=== PATIENT | female | born 1975 | race Caucasian/White ===

== ENCOUNTER 2022-08-27 11:34 | Emergency (ER) | payer MEDICAID ==
[~2022-08-27] VITALS: Ht 160 cm; Wt 57.0 kg
[2022-08-27] MEDS ORDERED: ASPIRIN 81MG TABLET PO ONE (16:00)
[2022-08-27] MEDS: NITROGLYCERIN 0.4MG TABLET SL SL PRN ×2 (16:18→16:28)
[2022-08-27 17:07] LABS: CHLORIDE 105 mEq/L (98-107)
[2022-08-27 17:28] LABS: HCG SCREEN NEGATIVE
[2022-08-27 17:30] LABS: BASOPHILS % 0.4 % (0.0-2.0); EOSINOPHILS % 0.4 % (0.0-5.0); HEMATOCRIT. 43.3 % (36.0-48.0); HEMOGLOBIN. 15.1 g/dL (12.0-16.0); LYMPHOCYTES % 21.3 % (20.0-50.0); MEAN CORPUSCULAR HEMOGLOBIN 32.3 pg (28.0-32.0); MEAN CORPUSCULAR VOLUME 92.4 fL (81.0-99.0); MONOCYTES % 4.6 % (2.0-8.0); NEUTROPHILS % 73.3 % (40.0-76.0); PLATELET 250 x1000/uL (130-400); RED BLOOD CELL COUNT 4.69 mill/uL (4.2-5.4); RED CELL DISTRIBUTION WIDTH 13.8 % (11.6-14.6)
[2022-08-27] MEDS ORDERED: LISI20TA31 MT (17:51)
[2022-08-27 18:00] VITALS: BP 121/74
== END 2022-08-27 21:10 | disposition home or self-care (01) ==
LOC: ER 11:34
DX: R07.89 Other chest pain (principal); M54.2 Cervicalgia; I10 Essential (primary) hypertension; R00.0 Tachycardia, unspecified; E78.00 Pure hypercholesterolemia, unspecified
CPT/HCPCS: 36415; 71045; 80053; 83880; 84484; 84703; 85025; 85379; 93005; 99285; Z7610